=== PATIENT | female | born 1940 | race Caucasian/White ===

== ENCOUNTER 2021-06-28 | Emergency (ER) | payer MEDICARE | END 2021-06-29 01:49 | disposition home or self-care (01) | LOC: CSHERS | DX: S00.83XA Contusion of other part of head, initial encounter (principal); K21.9 Gastro-esophageal reflux disease without esophagitis; E78.5 Hyperlipidemia, unspecified; I10 Essential (primary) hypertension; Z79.899 Other long term (current) drug therapy; Z79.82 Long term (current) use of aspirin; W19.XXXA Unspecified fall, initial encounter | CPT/HCPCS: 70450; 72125 ==

== ENCOUNTER 2021-07-12 09:42 | Outpatient (CLI) | payer MEDICARE, OTHER | END 2021-07-12 09:43 | disposition home or self-care (01) | LOC: CSHWCC 09:42 | PROVIDERS: ATTEND Nurse Practitioner Family | DX: S21.001D Unspecified open wound of right breast, subsequent encounter (principal) | CPT/HCPCS: 87070; 87205 ==

== ENCOUNTER 2021-07-19 15:13 | Outpatient (CLI) | payer MEDICARE, OTHER | END 2021-07-19 15:14 | disposition home or self-care (01) | LOC: CSHWCC 15:13 | PROVIDERS: ATTEND Nurse Practitioner Family | DX: S21.001D Unspecified open wound of right breast, subsequent encounter (principal) | CPT/HCPCS: 99212; G0463 ==

== ENCOUNTER 2021-07-26 15:11 | Outpatient (CLI) | payer MEDICARE, OTHER | END 2021-07-26 15:12 | disposition home or self-care (01) | LOC: CSHWCC 15:11 | PROVIDERS: ATTEND Nurse Practitioner Family | DX: S21.001D Unspecified open wound of right breast, subsequent encounter (principal) | CPT/HCPCS: 97139; G0463; 99213 ==

== ENCOUNTER 2021-08-16 13:46 | Outpatient (CLI) | payer MEDICARE, OTHER | END 2021-08-16 13:47 | disposition home or self-care (01) | LOC: CSHWCC 13:46 | PROVIDERS: ATTEND Nurse Practitioner Family | DX: S21.001D Unspecified open wound of right breast, subsequent encounter (principal) ==

== ENCOUNTER 2021-08-24 14:58 | Outpatient (CLI) | payer MEDICARE, OTHER | END 2021-08-24 14:59 | disposition home or self-care (01) | LOC: CSHWCC 14:58 | PROVIDERS: ATTEND Nurse Practitioner Family | DX: S21.001D Unspecified open wound of right breast, subsequent encounter (principal) | CPT/HCPCS: 11042; 11045; 87070; 87077; 87186; 87205; 97139; G0463; 99213 ==

== ENCOUNTER 2021-08-30 13:55 | Outpatient (CLI) | payer MEDICARE | END 2021-08-30 13:56 | disposition home or self-care (01) | LOC: CSHWCC 13:55 | PROVIDERS: ATTEND Nurse Practitioner Family | DX: S21.001D Unspecified open wound of right breast, subsequent encounter (principal); S51.801D Unspecified open wound of right forearm, subsequent encounter ==

== ENCOUNTER 2021-09-06 12:40 | Outpatient (CLI) | payer MEDICARE | END 2021-09-06 12:41 | disposition home or self-care (01) | LOC: CSHWCC 12:40 | PROVIDERS: ATTEND Nurse Practitioner Family | DX: S21.001D Unspecified open wound of right breast, subsequent encounter (principal); S51.801D Unspecified open wound of right forearm, subsequent encounter ==

== ENCOUNTER 2021-09-07 10:44 | Outpatient (CLI) | payer MEDICARE | END 2021-09-07 10:45 | disposition home or self-care (01) | LOC: CSHWCC 10:44 | PROVIDERS: ATTEND Nurse Practitioner Family | DX: S21.001D Unspecified open wound of right breast, subsequent encounter (principal) | CPT/HCPCS: 97139; G0277 ==

== ENCOUNTER 2021-09-12 13:13 | Outpatient (CLI) | payer MEDICARE | END 2021-09-12 13:14 | disposition home or self-care (01) | LOC: CSHWCC 13:13 | PROVIDERS: ATTEND Nurse Practitioner Family | DX: S21.001D Unspecified open wound of right breast, subsequent encounter (principal) | CPT/HCPCS: G0277 ==

== ENCOUNTER 2021-09-13 13:02 | Outpatient (CLI) | payer MEDICARE | END 2021-09-13 13:03 | disposition home or self-care (01) | LOC: CSHWCC 13:02 | PROVIDERS: ATTEND Nurse Practitioner Family | DX: S21.001D Unspecified open wound of right breast, subsequent encounter (principal) ==

== ENCOUNTER 2021-09-14 13:02 | Outpatient (CLI) | payer MEDICARE | END 2021-09-14 13:03 | disposition home or self-care (01) | LOC: CSHWCC 13:02 | PROVIDERS: ATTEND Nurse Practitioner Family | DX: S21.001D Unspecified open wound of right breast, subsequent encounter (principal) ==

== ENCOUNTER 2021-09-15 14:31 | Outpatient (CLI) | payer MEDICARE | END 2021-09-15 14:32 | disposition home or self-care (01) | LOC: CSHWCC 14:31 | PROVIDERS: ATTEND Nurse Practitioner Family | DX: S21.001D Unspecified open wound of right breast, subsequent encounter (principal) ==

== ENCOUNTER 2021-09-16 11:31 | Outpatient (CLI) | payer MEDICARE | END 2021-09-16 11:32 | disposition home or self-care (01) | LOC: CSHWCC 11:31 | PROVIDERS: ATTEND Nurse Practitioner Family | DX: S21.001D Unspecified open wound of right breast, subsequent encounter (principal) | CPT/HCPCS: 97139; G0277 ==

== ENCOUNTER 2021-09-20 13:01 | Outpatient (CLI) | payer MEDICARE | END 2021-09-20 13:02 | disposition home or self-care (01) | LOC: CSHWCC 13:01 | PROVIDERS: ATTEND Nurse Practitioner Family | DX: S21.001D Unspecified open wound of right breast, subsequent encounter (principal) ==

== ENCOUNTER 2021-09-21 13:00 | Outpatient (CLI) | payer MEDICARE | END 2021-09-21 13:01 | disposition home or self-care (01) | LOC: CSHWCC 13:00 | PROVIDERS: ATTEND Nurse Practitioner Family | DX: S21.001D Unspecified open wound of right breast, subsequent encounter (principal) | CPT/HCPCS: 97139; G0277 ==

== ENCOUNTER 2021-09-26 11:11 | Outpatient (CLI) | payer MEDICARE | END 2021-09-26 11:12 | disposition home or self-care (01) | LOC: CSHWCC 11:11 | PROVIDERS: ATTEND Nurse Practitioner Family | DX: S21.001D Unspecified open wound of right breast, subsequent encounter (principal) | CPT/HCPCS: 97139; G0277 ==

== ENCOUNTER 2021-10-04 12:55 | Outpatient (CLI) | payer MEDICARE | END 2021-10-04 12:56 | disposition home or self-care (01) | LOC: CSHWCC 12:55 | PROVIDERS: ATTEND Nurse Practitioner Family | DX: S21.001D Unspecified open wound of right breast, subsequent encounter (principal); S41.101D Unspecified open wound of right upper arm, subsequent encounter | CPT/HCPCS: 97139; G0277; G0463; 99213 ==

== ENCOUNTER → 2021-10-05 | Outpatient (CLI) | payer MEDICARE | LOC: CSHWCC 10-04 16:19 | PROVIDERS: ATTEND Nurse Practitioner Family | DX: S21.001D Unspecified open wound of right breast, subsequent encounter (principal) | CPT/HCPCS: 97139; G0277 ==

== ENCOUNTER 2021-10-06 12:54 | Outpatient (CLI) | payer MEDICARE | END 2021-10-06 12:55 | disposition home or self-care (01) | LOC: CSHWCC 12:54 | PROVIDERS: ATTEND Nurse Practitioner Family | DX: S21.001D Unspecified open wound of right breast, subsequent encounter (principal) | CPT/HCPCS: 97139; G0277; G0463; 99212 ==

== ENCOUNTER 2021-10-07 10:47 | Outpatient (CLI) | payer MEDICARE | END 2021-10-07 10:48 | disposition home or self-care (01) | LOC: CSHWCC 10:47 | PROVIDERS: ATTEND Nurse Practitioner Family | DX: S21.001D Unspecified open wound of right breast, subsequent encounter (principal) | CPT/HCPCS: 97139; G0277 ==

== ENCOUNTER 2021-10-10 12:50 | Outpatient (CLI) | payer MEDICARE | END 2021-10-10 12:51 | disposition home or self-care (01) | LOC: CSHWCC 12:50 | PROVIDERS: ATTEND Nurse Practitioner Family | DX: S21.001D Unspecified open wound of right breast, subsequent encounter (principal) | CPT/HCPCS: 87070; 87077; 87186; 87205 ==

== ENCOUNTER 2021-10-11 13:00 | Outpatient (CLI) | payer MEDICARE | END 2021-10-11 13:01 | disposition home or self-care (01) | LOC: CSHWCC 13:00 | PROVIDERS: ATTEND Nurse Practitioner Family | DX: S21.001D Unspecified open wound of right breast, subsequent encounter (principal) ==

== ENCOUNTER 2021-12-08 10:27 | Outpatient (CLI) | payer MEDICARE | END 2021-12-08 10:28 | disposition home or self-care (01) | LOC: CSHWCC 10:27 | PROVIDERS: ATTEND Nurse Practitioner Family | DX: S21.001D Unspecified open wound of right breast, subsequent encounter (principal) ==

== ENCOUNTER 2021-12-21 11:08 | Outpatient (CLI) | payer MEDICARE | END 2021-12-21 11:09 | disposition home or self-care (01) | LOC: CSHWCC 11:08 | PROVIDERS: ATTEND Nurse Practitioner Family | DX: S21.001D Unspecified open wound of right breast, subsequent encounter (principal); S51.801D Unspecified open wound of right forearm, subsequent encounter ==

== ENCOUNTER 2022-01-04 10:11 | Outpatient (CLI) | payer MEDICARE | END 2022-01-04 10:12 | disposition home or self-care (01) | LOC: CSHWCC 10:11 | PROVIDERS: ATTEND Nurse Practitioner Family | DX: S21.001D Unspecified open wound of right breast, subsequent encounter (principal); S81.002D Unspecified open wound, left knee, subsequent encounter | CPT/HCPCS: 97139; G0463; 99213 ==

== ENCOUNTER 2022-01-18 13:47 | Outpatient (CLI) | payer MEDICARE, OTHER | END 2022-01-18 13:48 | disposition home or self-care (01) | LOC: CSHWCC 13:47 | PROVIDERS: ATTEND Nurse Practitioner Family | DX: S21.001D Unspecified open wound of right breast, subsequent encounter (principal); S81.002D Unspecified open wound, left knee, subsequent encounter | CPT/HCPCS: 99212; G0463 ==

== ENCOUNTER 2022-02-08 14:00 | Outpatient (CLI) | payer MEDICARE, OTHER | END 2022-02-08 14:01 | disposition home or self-care (01) | LOC: CSHWCC 14:00 | PROVIDERS: ATTEND Nurse Practitioner Family | DX: S21.001D Unspecified open wound of right breast, subsequent encounter (principal) ==

== ENCOUNTER 2022-03-08 09:50 | Outpatient (CLI) | payer MEDICARE, OTHER | END 2022-03-08 09:51 | disposition home or self-care (01) | LOC: CSHWCC 09:50 | PROVIDERS: ATTEND Nurse Practitioner Family | DX: S21.001D Unspecified open wound of right breast, subsequent encounter (principal) ==

== ENCOUNTER 2022-08-28 10:19 | Outpatient (CLI) | payer MEDICARE, OTHER | END 2022-08-28 10:20 | disposition home or self-care (01) | LOC: CSHWCC 10:19 | PROVIDERS: ATTEND Nurse Practitioner Family | DX: S21.001A Unspecified open wound of right breast, initial encounter (principal) | CPT/HCPCS: 11730; 97139; G0463; 99212 ==

== ENCOUNTER 2022-09-26 09:30 | Outpatient (CLI) | payer MEDICARE, OTHER | END 2022-09-26 09:31 | disposition home or self-care (01) | LOC: CSHWCC 09:30 | PROVIDERS: ATTEND Nurse Practitioner Family | DX: S21.001D Unspecified open wound of right breast, subsequent encounter (principal); S91.102D Unspecified open wound of left great toe without damage to nail, subsequent encounter | CPT/HCPCS: 99214; G0463 ==

== ENCOUNTER 2022-10-10 10:26 | Outpatient (CLI) | payer MEDICARE, OTHER | END 2022-10-10 10:27 | disposition home or self-care (01) | LOC: CSHWCC 10:26 | PROVIDERS: ATTEND Nurse Practitioner Family | DX: S21.001D Unspecified open wound of right breast, subsequent encounter (principal); S81.802D Unspecified open wound, left lower leg, subsequent encounter | CPT/HCPCS: 97139; G0463; 99213 ==

== ENCOUNTER 2022-11-15 10:11 | Outpatient (CLI) | payer MEDICARE, OTHER | END 2022-11-15 10:12 | disposition home or self-care (01) | LOC: CSHWCC 10:11 | PROVIDERS: ATTEND Nurse Practitioner Family | DX: S81.802D Unspecified open wound, left lower leg, subsequent encounter (principal); S21.001D Unspecified open wound of right breast, subsequent encounter; R60.0 Localized edema ==